=== PATIENT | female | born 1960 | race African-American/Black ===

== ENCOUNTER → 2016-12-14 | Outpatient (CLI) | payer MEDICARE, OTHER | END | disposition home or self-care (01) | LOC: RADPV 11:30 | DX: Z01.818 Encounter for other preprocedural examination (principal); I70.0 Atherosclerosis of aorta; M75.52 Bursitis of left shoulder; M19.012 Primary osteoarthritis, left shoulder | CPT/HCPCS: 71020; 93005 ==